=== PATIENT | male | born 1985 | race Caucasian/White ===

== ENCOUNTER 2018-08-02 13:20 | Emergency (ER) | payer SELFPAY ==
[2018-08-02] VITALS (44 sets, daily range): BP systolic 142–177; BP diastolic 73–144; PULSE 66–169; RESP 12–25; TEMP 37.1–37.2; O2SAT 96–100
--- NOTE | 2018-08-02 14:03 | DI.RAD_ITS ---
SYMPTOMS/DIAGNOSIS: CHEST PAIN CHEST X-RAY, PA AND LATERAL: No priors. The heart is normal in size. The lungs are clear. The mediastinal structures and pleura appear intact. IMPRESSION: Normal chest.
--- NOTE | 2018-08-02 14:04 | W.ED.GENAD ---
Discharge Plan Disposition Patient Disposition: HOME Condition: Stable Discharge Details Chief Complaint: Chest Pain Clinical Impression: Respiratory tract infection Primary Care Provider: KODAK,LOCAL ED Provider: Marvel Mullen Home Meds and New Rx's Prescriptions: New doxycycline hyclate 100 mg capsule 100 mg PO BID Qty: 14 RF: 0 benzonatate 200 mg capsule 200 mg PO TID PRN (Reason: cough) Qty: 30 RF: 0 Discharge Instructions Instructions: Upper Respiratory Infection (ED), Cold Symptoms (ED), Acute Cough (ED) Additional Instructions: Return immediately to the emergency department for any new or worsening symptoms otherwise follow-up with your primary care provider if not improving over the next week. Take antibiotic as prescribed and until fully completed. Referrals: Primary Care Provider [Outside] (Follow-up with your local primary care provider in 1 week as needed for reassessment if you are not improving when you return back to [place].) Discharge Data Discharge Date/Time-TO BE ENTERED AT DEPARTURE: 08/02/18 18:57 Medical Decision Making <RADHA Contreras - Last Filed: 08/03/18 09:34> Patient is a 32 year old male presenting today with c/c of cough and CP. Patient has history of asthma, is an active smoker. Reports that cough was nonproductive but he began noting yellow sputum recently. States that when he awoke this morning he noted left sided chest discomfort that is worse with movement. Pain was reproducible on exam. Patient has area of consolidation in the LLL. He reports that he has had pneumonia in the past and that his symptoms feel ssimilar to this. He denies dyspnea. Reports taht pain is worse with cough but is not consistent. Appears comfortable, is nontoxic, VS WNL. Reports that he is typically on Metoprolol, is unclear as to why he is in on this medication. Reports that he has run out of this and has not been on it for some time. Believes that he has a heart thing but is unclear as to what this is. EKG reviewed by Dr. Martinez. No acute abnormalities noted. No ischemic changes noted Contacted the patient's primary care in [facility], patient is seen at [facility] . Reports the patient has not been seen since June 2017. This is also last time the patient received his refill of metoprolol. They advised that the only significant finding the patient's history is for atrial tachycardia. Chest x-ray reviewed by radiologist with no acute abnormalities noted. However, despite this I remain concerned for developing pneumonia given the change in his cough and crackles heard on auscultation the left lower lobe Laboratory evaluation without significant abnormality. No leukocytosis. Troponin is less than 0.02. Discussed these findings with the patient. Symptoms began today, I feel that repeat 3-hour troponin is appropriate. Discussed this plan with the patient who is in agreement. At the end of my shift, care was transitioned to Marvel Mullen NP pending repeat troponin <Marvel Mullen NP - Last Filed: 08/02/18 20:35> Patient report was received from Priscilla GARCIA. Patient remained stable throughout emergency department stay with no new or worsening symptoms. Review of second troponin shows no elevation so I feel that patient is able to be safely discharged with diagnosis of respiratory tract infection given cough, chest pain, and increase in sputum production so patient placed upon doxycycline for 7 days. After discussion of diagnosis and plan of care patient has no further needs, questions, or concerns and states clear understanding to return to the emergency department for any worsening symptoms. HPI <RADHA Contreras - Last Filed: 08/03/18 09:34> General Mode of arrival: ambulatory. Date/Time Provider Initiated Documentation: 08/02/18 14:02. Limitations to Documentation: no limitations. Information obtained by: patient. History of Present Illness 32 year old M presents to the emergency department with the chief complaint of chest pain, cough, described as moderate, with intensity rated at 5. Quality is described as aching, and is localized to the chest. Patient reports no radiation; denies radiation to back, neck, extremity, abdomen and flank. Patient started experiencing this week(s) (cough began 3-4 weeks ago. CP began this morning at 0300 when he awoke for work) and it has been constant. Immobilization improves symptom(s), Movement worsens symptoms (reports that symptoms increased with exertion at work today) . Patient notes chest pain and cough; denies diaphoresis, fever/chills, headaches, loss of appetite, malaise, nausea/vomiting, rash, shortness of breath, syncope and weakness. Patient did receive the following treatments prior to arrival, none Related Data Home Medications Medication Instructions Recorded Confirmed benzonatate 200 mg PO TID PRN #30 cap 08/02/18 doxycycline hyclate 100 mg PO BID #14 cap 08/02/18 Previous Rx's Medication Instructions Recorded benzonatate 200 mg PO TID PRN #30 cap 08/02/18 doxycycline hyclate 100 mg PO BID #14 cap 08/02/18 Allergies Allergy/AdvReac Type Severity Reaction Status Date / Time erythromycin base Allergy Unverified 08/02/18 14:59 Penicillins Allergy Unverified 08/02/18 14:59 General Stated Complaint: Chest Pain VANE: 2 Review of Systems <RADHA Contreras - Last Filed: 08/03/18 09:34> Constitutional Reports as per HPI, Denies chills, Denies fever(s), Denies headache(s), Denies lethargy, Denies poor appetite and Denies weakness Eyes Denies eye discharge ENT Denies otalgia, Denies facial pain, Denies headache(s), Denies mouth lesions, Reports nasal congestion, Reports nasal discharge, Denies sinus pain, Denies sinus pressure and Reports sore throat Cardiovascular Reports as per HPI, Reports chest pain, Denies claudication, Denies leg edema, Reports palpitations (reports hx of palpitations, none recently), Denies dyspnea and Denies dyspnea on exertion Respiratory Reports as per HPI, Reports change in phlegm color, Reports chest congestion, Reports cough, Denies hemoptysis, Denies dyspnea, Denies dyspnea on exertion, Denies stridor and Reports wheezing (Patient has history of asthma, reports that this is been worse than typical. Has been using his albuterol inhaler to help with symptomatic management) Gastrointestinal Reports as per HPI, Denies abdominal pain, Denies change in stool character and Denies nausea Musculoskeletal Denies back pain Integumentary/Breasts Denies rash Neurologic Denies headache(s) and Denies weakness Endocrine Reports palpitations (reports hx of palpitations, none recently) Allergic/Immunologic Reports wheezing (Patient has history of asthma, reports that this is been worse than typical. Has been using his albuterol inhaler to help with symptomatic management) Exam <RADHA Contreras - Last Filed: 08/03/18 09:34> Const General: cooperative, healthy appearing, no acute distress, well developed and well groomed Nutritional Appearance: average body habitus and well nourished Orientation: alert and awake [facility] Head: normal to inspection, normocephalic and atraumatic Ears: hearing grossly normal bilaterally, external ears normal and TM's normal bilaterally General nose exam: external nose normal and nares normal Face and sinus: normal facial exam and sinuses nontender Mouth: oral mucosae normal, oropharynx normal, moist mucous membranes, no drooling, no muffled voice and no trismus Teeth and gingiva: dentition normal Throat: posterior oropharynx normal, tonsils normal and uvula midline Eyes General: appearance normal, both eyes and all related structures Neck Neck: normal visual inspection, full ROM and no lymphadenopathy Chest Chest: abnormal inspection of the chest (Patient has discomfort with AP pressure applied to the left side of the anterior chest) and no crepitus Resp Effort & Inspection: normal respiratory effort, able to speak in complete sentences and no respiratory distress Auscultation: crackles on the left in the lower lung castro and no wheezes Cardio Rate: regular rate Rhythm: regular rhythm Heart Sounds: S1 normal and S2 normal GI Inspection: normal to inspection Palpation: soft, no hepatosplenomegaly, not firm, no guarding and nontender Skin General skin exam: no rashes or lesions noted Lesions: no lesions Rashes: no rashes Neuro General: alert and awake Cognition: normal cognition Speech: speech normal Gait: normal gait Extrem General: no pedal edema, no calf tenderness and normal gait Psych Appearance: grossly normal and well kempt Mental Status: mental status grossly normal Speech and Movement: speech and movement normal Course <RADHA Contreras - Last Filed: 08/03/18 09:34> Vital Signs Temperature 37.1 C 08/02/18 13:30 Pulse 87 08/02/18 13:30 Respiratory Rate 18 08/02/18 13:30 Blood Pressure 151/89 H 08/02/18 13:30 Pulse Oximetry 98 08/02/18 13:30 Temperature 37.1 C 08/02/18 13:30 Temperature Source Temporal Artery Scan 08/02/18 13:30 Pulse 87 08/02/18 13:30 Respiratory Rate 18 08/02/18 13:30 Blood Pressure 151/89 H 08/02/18 13:30 Blood Pressure Position Sitting 08/02/18 13:30 Pulse Oximetry 98 08/02/18 13:30 Oxygen Delivery Method Room Air 08/02/18 13:30 Oxygen Flow Rate 0 08/02/18 13:30 Pain Level 5 08/02/18 13:30 Sign Out <RADHA Contreras - Last Filed: 08/03/18 09:34> Sign Out Data: Sign Out Comment: Presented for CP and cough. Repeat troponin pending. Care transferred to Jatinder Mullen NP. Last updated by Dianne Woodard PA at 08/02/18 17:13
[2018-08-02 14:49] LABS: Absolute Basophil Count 0.03 k/cumm (0.0-0.2); Absolute Eosinophil Count 0.12 k/cumm (0.0-0.7); Absolute Lymphocyte Count 2.03 k/cumm (1.2-3.4); Absolute Monocyte Count 0.61 k/cumm (0.11-0.7); Absolute Neutrophil Count 3.44 k/cumm (1.2-6.7); Basophils % 0.5; Eosinophils % 1.9; HCT 38.2 % (40.0-50.0); HGB 12.8 g/dL (13.5-17.5); Lymphocytes % 32.6; Mean Corp. HGB Concentration 33.5 g/dL (32.0-36.0); Mean Corpuscular Hemoglobin 30.4 pg (27.0-33.0); Mean Corpuscular Volume 90.7 fL (80-95); Mean Platelet Volume 8.4 fL (8.0-11.0); Monocytes % 9.8; Neutrophils % 55.2; Platelet Count 318 x1000/uL (130-400); RBC 4.21 m/cumm (4.50-6.00); RBC Distribution Width 15.3 % (11.8-14.1); White Blood Cell Count 6.23 k/cumm (4.4-10.8)
[2018-08-02 14:58] LABS: INR 1.1 (1.0-3.5); PTT Activated 25.6 sec (21.0-31.4); Prothrombin Time 10.6 sec (9.3-10.8)
[2018-08-02 14:59] LABS: ALT 35 U/L (12-78); AST 26 U/L (15-37); Albumin 3.8 g/dL (3.4-5.0); Alkaline Phosphatase 89 U/L (46-116); Anion Gap 10.2 mmol/L (3-11); BUN 15 mg/dL (7-18); Bilirubin, Direct 0.13 mg/dL (0.00-0.20); Bilirubin, Total 0.5 mg/dL (0.2-1.0); CO2 25.8 mmol/L (21.0-32.0); CREATININE 0.78 mg/dL (0.70-1.30); Calcium 9.2 mg/dL (8.5-10.1); Chloride 104 mmol/L (98-107); Glucose 97 mg/dL (70-100); Magnesium 1.9 mg/dL (1.8-2.4); Potassium 3.5 mmol/L (3.5-5.1); Sodium 140 mmol/L (136-145); Total Protein 7.3 g/dL (6.4-8.2)
[2018-08-02 15:01] LABS: Troponin I < 0.02 ng/mL (0.00-0.06)
--- NOTE | 2018-08-02 15:19 | ED.GENADUL_ITS ---
Discharge Plan Disposition Patient Disposition: HOME Condition: Stable Discharge Details Chief Complaint: Chest Pain Clinical Impression: Respiratory tract infection Primary Care Provider: KODAK,LOCAL ED Provider: Marvel Mullen Home Meds and New Rx's Prescriptions: New doxycycline hyclate 100 mg capsule 100 mg PO BID Qty: 14 RF: 0 benzonatate 200 mg capsule 200 mg PO TID PRN (Reason: cough) Qty: 30 RF: 0 Discharge Instructions Instructions: Upper Respiratory Infection (ED), Cold Symptoms (ED), Acute Cough (ED) Additional Instructions: Return immediately to the emergency department for any new or worsening symptoms otherwise follow-up with your primary care provider if not improving over the next week. Take antibiotic as prescribed and until fully completed. Referrals: Primary Care Provider [Outside] (Follow-up with your local primary care provider in 1 week as needed for reassessment if you are not improving when you return back to [place].) Discharge Data Discharge Date/Time-TO BE ENTERED AT DEPARTURE: 08/02/18 18:57 Medical Decision Making <RADHA Contreras - Last Filed: 08/03/18 09:34> Patient is a 32 year old male presenting today with c/c of cough and CP. Patient has history of asthma, is an active smoker. Reports that cough was nonproductive but he began noting yellow sputum recently. States that when he awoke this morning he noted left sided chest discomfort that is worse with movement. Pain was reproducible on exam. Patient has area of consolidation in the LLL. He reports that he has had pneumonia in the past and that his symptoms feel ssimilar to this. He denies dyspnea. Reports taht pain is worse with cough but is not consistent. Appears comfortable, is nontoxic, VS WNL. Reports that he is typically on Metoprolol, is unclear as to why he is in on this medication. Reports that he has run out of this and has not been on it for some time. Believes that he has a heart thing but is unclear as to what this is. EKG reviewed by Dr. Martinez. No acute abnormalities noted. No ischemic changes noted Contacted the patient's primary care in [facility], patient is seen at [facility] [phone]. Reports the patient has not been seen since June 2017. This is also last time the patient received his refill of metoprolol. They advised that the only significant finding the patient's history is for atrial tachycardia. Chest x-ray reviewed by radiologist with no acute abnormalities noted. However , despite this I remain concerned for developing pneumonia given the change in his cough and crackles heard on auscultation the left lower lobe Laboratory evaluation without significant abnormality. No leukocytosis. Troponin is less than 0.02. Discussed these findings with the patient. Symptoms began today, I feel that repeat 3-hour troponin is appropriate. Discussed this plan with the patient who is in agreement. At the end of my shift, care was transitioned to Marvel Mullen NP pending repeat troponin <Marvel Mullen NP - Last Filed: 08/02/18 20:35> Patient report was received from Priscilla GARCIA. Patient remained stable throughout emergency department stay with no new or worsening symptoms. Review of second troponin shows no elevation so I feel that patient is able to be safely discharged with diagnosis of respiratory tract infection given cough, chest pain, and increase in sputum production so patient placed upon doxycycline for 7 days. After discussion of diagnosis and plan of care patient has no further needs, questions, or concerns and states clear understanding to return to the emergency department for any worsening symptoms. HPI <RADHA Contreras - Last Filed: 08/03/18 09:34> General Mode of arrival: ambulatory . Date/Time Provider Initiated Documentation: 08/02/18 14:02 . Limitations to Documentation: no limitations . Information obtained by: patient . History of Present Illness 32 year old M presents to the emergency department with the chief complaint of chest pain, cough, described as moderate, with intensity rated at 5. Quality is described as aching, and is localized to the chest. Patient reports no radiation; denies radiation to back, neck, extremity, abdomen and flank. Patient started experiencing this week(s) (cough began 3-4 weeks ago. CP began this morning at 0300 when he awoke for work) and it has been constant. Immobilization improves symptom(s), Movement worsens symptoms ( reports that symptoms increased with exertion at work today) . Patient notes chest pain and cough; denies diaphoresis, fever/chills, headaches, loss of appetite, malaise, nausea/vomiting, rash, shortness of breath, syncope and weakness. Patient did receive the following treatments prior to arrival, none Related Data Home Medications Medication Instructions Recorded Confirmed benzonatate 200 mg PO TID PRN #30 cap 08/02/18 doxycycline hyclate 100 mg PO BID #14 cap 08/02/18 Previous Rx's Medication Instructions Recorded benzonatate 200 mg PO TID PRN #30 cap 08/02/18 doxycycline hyclate 100 mg PO BID #14 cap 08/02/18 Allergies Allergy/AdvReac Type Severity Reaction Status Date / Time erythromycin base Allergy Unverified 08/02/18 14:59 Penicillins Allergy Unverified 08/02/18 14:59 General Stated Complaint: Chest Pain VANE: 2 Review of Systems <RADHA Contreras - Last Filed: 08/03/18 09:34> Constitutional Reports as per HPI, Denies chills, Denies fever(s), Denies headache(s), Denies lethargy, Denies poor appetite and Denies weakness Eyes Denies eye discharge ENT Denies otalgia, Denies facial pain, Denies headache(s), Denies mouth lesions, Reports nasal congestion, Reports nasal discharge, Denies sinus pain, Denies sinus pressure and Reports sore throat Cardiovascular Reports as per HPI, Reports chest pain, Denies claudication, Denies leg edema, Reports palpitations (reports hx of palpitations, none recently), Denies dyspnea and Denies dyspnea on exertion Respiratory Reports as per HPI, Reports change in phlegm color, Reports chest congestion, Reports cough, Denies hemoptysis, Denies dyspnea, Denies dyspnea on exertion, Denies stridor and Reports wheezing (Patient has history of asthma, reports that this is been worse than typical. Has been using his albuterol inhaler to help with symptomatic management) Gastrointestinal Reports as per HPI, Denies abdominal pain, Denies change in stool character and Denies nausea Musculoskeletal Denies back pain Integumentary/Breasts Denies rash Neurologic Denies headache(s) and Denies weakness Endocrine Reports palpitations (reports hx of palpitations, none recently) Allergic/Immunologic Reports wheezing (Patient has history of asthma, reports that this is been worse than typical. Has been using his albuterol inhaler to help with symptomatic management) Exam <RADHA Contreras - Last Filed: 08/03/18 09:34> Const General: cooperative, healthy appearing, no acute distress, well developed and well groomed Nutritional Appearance: average body habitus and well nourished Orientation: alert and awake [facility] Head: normal to inspection, normocephalic and atraumatic Ears: hearing grossly normal bilaterally, external ears normal and TM's normal bilaterally General nose exam: external nose normal and nares normal Face and sinus: normal facial exam and sinuses nontender Mouth: oral mucosae normal, oropharynx normal, moist mucous membranes, no drooling, no muffled voice and no trismus Teeth and gingiva: dentition normal Throat: posterior oropharynx normal, tonsils normal and uvula midline Eyes General: appearance normal, both eyes and all related structures Neck Neck: normal visual inspection, full ROM and no lymphadenopathy Chest Chest: abnormal inspection of the chest (Patient has discomfort with AP pressure applied to the left side of the anterior chest) and no crepitus Resp Effort & Inspection: normal respiratory effort, able to speak in complete sentences and no respiratory distress Auscultation: crackles on the left in the lower lung castro and no wheezes Cardio Rate: regular rate Rhythm: regular rhythm Heart Sounds: S1 normal and S2 normal GI Inspection: normal to inspection Palpation: soft, no hepatosplenomegaly, not firm, no guarding and nontender Skin General skin exam: no rashes or lesions noted Lesions: no lesions Rashes: no rashes Neuro General: alert and awake Cognition: normal cognition Speech: speech normal Gait: normal gait Extrem General: no pedal edema, no calf tenderness and normal gait Psych Appearance: grossly normal and well kempt Mental Status: mental status grossly normal Speech and Movement: speech and movement normal Course <RADHA Contreras - Last Filed: 08/03/18 09:34> Vital Signs Temperature 37.1 C 08/02/18 13:30 Pulse 87 08/02/18 13:30 Respiratory Rate 18 08/02/18 13:30 Blood Pressure 151/89 H 08/02/18 13:30 Pulse Oximetry 98 08/02/18 13:30 Temperature 37.1 C 08/02/18 13:30 Temperature Source Temporal Artery Scan 08/02/18 13:30 Pulse 87 08/02/18 13:30 Respiratory Rate 18 08/02/18 13:30 Blood Pressure 151/89 H 08/02/18 13:30 Blood Pressure Position Sitting 08/02/18 13:30 Pulse Oximetry 98 08/02/18 13:30 Oxygen Delivery Method Room Air 08/02/18 13:30 Oxygen Flow Rate 0 08/02/18 13:30 Pain Level 5 08/02/18 13:30 Sign Out <RADHA Contreras - Last Filed: 08/03/18 09:34> Sign Out Data: Sign Out Comment: Presented for CP and cough. Repeat troponin pending. Care transferred to Jatinder Mullen NP. Last updated by Dianne Woodard PA at 08/02/18 17:13
[2018-08-02] MEDS: Normal Saline 1,000 ML 125 ML IV (15:47)
[2018-08-02 18:32] LABS: Troponin I < 0.02 ng/mL (0.00-0.06)
[2018-08-02] MEDS: Doxycycline Hyclate 100 MG CAP PO (18:57)
== END 2018-08-02 18:57 | disposition home or self-care (01) ==
PROVIDERS: Physician Assistant; Emergency Provider Nurse Practitioner Family; PCP Neuromusculoskeletal Medicine & OMM
DX: J06.9 Acute upper respiratory infection, unspecified (principal); R07.9 Chest pain, unspecified; F17.210 Nicotine dependence, cigarettes, uncomplicated
CPT/HCPCS: 36415; 80053; 80076; 93005; 96360; 96361; 99285; 71046; 83735; 84484; 85025; 85610; 85730; 93010